=== PATIENT | female | born 1990 | race Caucasian/White ===

== ENCOUNTER 2019-03-19 15:37 | Outpatient (CLI) | payer OTHER ==
[~2019-03-19] VITALS: Ht 167.6 cm; Wt 75.0 kg
[2019-03-19] VITALS (7 sets, daily range): BP systolic 108–130; BP diastolic 57–66; PULSE 80–100; TEMP 98.2
[~2019-03-19 15:37] MED LIST: MOTRIN 600600 MG/TAB PO; PERCOCET 325 MG1 TA2 PO
--- NOTE | 2019-03-19 15:45 | NUR ---
1545-G3L1 35.[address] MONTEIROURES TO LR5 VIA WHEELCHAIR WITH REPORTS OF CONTRACTIONS OFF AND ON SINCE 1145 AND 'BEEN LOSING MUCUS PLUG SINCE THEN.' ASSISTED INTO GOWN AND PLACED ON EFM. VSS. 1555-AMNITEST NEG, SVE 50/-2, BOWI, PALPATED HAND OR FOOT WITH SVE. DR. GUERRERO UPDATED, SEE PHYSICIAN NOTIFICATION. ASSESSMENT COMPLETE. 1618-UP TO BATHROOM, UA SENT TO LAB PER MD ORDERS. 1655-SVE 3-50/-2, UNCHANGED. AWAITING UA RESULTS. 1710-DR. RIVERA UPDATED ON PATIENT, SEE PHYSICIAN NOTIFICATION. ORDERS TO START LR BOLUS AND RECHECK IN ONE HOUR. 1727-SVE -50/-2, PATIENT UNABLE TO SIT STILL BREATHING PURSED LIP THROUGH CONTRACTIONS. 1730-IV TO LEFT HAND. LR BOLUS PER MD ORDERS. 1740-DR. GUERRERO ON UNIT, REVIEWS PLAN OF CARE WITH PATIENT. BEDSIDE SONO, VERTEX CONFIRMED SVE BY MD 3-50/-2. ORDERS TO GIVE TERBUTALINE SQ 0.25MG NOW AND ALLOW PATIENT TO AMBULATE AFTER LR BOLUS FINISHES. 175-SQ TERBUTALINE IN LEFT UPPER ARM. SEE EMAR 180-PATIENT OFF EFM TO AMBULATE. IV TO INT. DR. GUERRERO ON UNIT REVIEWS FHR MONITOR PRIOR TO LEAVING UNIT. 1814-REPORTED OFF TO ELBERT BALL
[2019-03-19] MEDS ORDERED: NATURAL IRON65 MG (16:08)
[2019-03-19] MEDS ORDERED: PRENATAL (16:08)
[2019-03-19] MEDS ORDERED: PROTONIX20 MG (16:09)
[2019-03-19 16:56] LABS: COLLECTION METHOD CLEAN CATCH
[2019-03-19 17:08] LABS: PH 8 (5-8); URINE APPEARANCE Hazy; URINE BACTERIA Many /hpf; URINE BILIRUBIN Negative (NEGATIVE); URINE BLOOD 1+ (NEGATIVE); URINE COLOR Straw; URINE GLUCOSE Negative (NEGATIVE); URINE KETONE Negative (NEGATIVE); URINE LEUKOCYTE ESTERASE Trace (NEGATIVE); URINE NITRATE Negative (NEGATIVE); URINE PROTEIN(semi-quant) Negative (NEGATIVE); URINE RBC 0-2 /hpf; URINE UROBILINOGEN Negative (NEGATIVE); URINE WBC 0-2 /hpf
--- NOTE | 2019-03-19 18:54 | NUR ---
1851- DC ORDERS RECEIVED FROM DR. GUERRERO. 1853- MONITORING DC'D AT THIS TIME. DISCUSSED WITH PT TO RETURN TO UNIT IF YOUR WATER BREAKS OR YOUR CONTRACTIONS BECOME CONSISTENT AGAIN. MAY TAKE TYLENOL AND BENADRYL FOR PAIN AND TO HELP WITH SLEEP PER DR. GUERRERO. QUESTIONS ENCOURAGED AND ANSWERED AND UNDERSTANDING VERBALIZED.
--- NOTE | 2019-03-19 19:20 | NUR ---
DISCHARGE INSTRUCTIONS REVIEWED WITH PT, UNDERSTANDING VERBALIZED. PT WAITING IN LABOR ROOM FOR FAMILY TO ARRIVE.
== END 2019-03-19 19:35 | disposition home or self-care (01) ==
LOC: LDRO 15:37
PROVIDERS: Student in an Organized Health Care Education/Training Program
DX: O62.9 Abnormality of forces of labor, unspecified (principal); Z3A.36 36 weeks gestation of pregnancy
CPT/HCPCS: J3105; J7120

== ENCOUNTER 2019-03-28 09:46 | Outpatient (CLI) | payer OTHER ==
[~2019-03-28] VITALS: Ht 167.6 cm; Wt 74.5 kg
[~2019-03-28 09:46] MED LIST changes: +NATURAL IRON65 MG; +PRENATAL; +PROTONIX20 MG
[2019-03-28 10:07] VITALS: BP 105/63; PULSE 75; TEMP 97.4
[2019-03-28 10:30] VITALS: BP 105/63; PULSE 75; TEMP 97.4
--- NOTE | 2019-03-28 10:32 | NUR ---
PATIENT HERE FOR LABOR CHECK. STATES WENT TO BATHROOM THIS MORNING AND HAD LEAKING. ASSESSMENT COMPLETED. VS WNL. SVE UNCHANGED FROM LAST APPOINTMENT. OCC IRREGULAR CONTRACTIONS.AMNIOTRACE NEGATIVE AND AMNIO SACK FELT WITH SVE. DENIES NEEDS AT THIS TIME,
== END 2019-03-28 10:50 | disposition home or self-care (01) ==
LOC: LDRO 09:46 → LDR 10:15 → LDRO 10:50
DX: Z34.93 Encounter for supervision of normal pregnancy, unspecified, third trimester (principal); Z3A.37 37 weeks gestation of pregnancy
CPT/HCPCS: OP

== ENCOUNTER 2019-04-01 14:20 | Outpatient (CLI) | payer OTHER ==
[~2019-04-01] VITALS: Ht 167.6 cm; Wt 75.0 kg
--- NOTE | 2019-04-01 14:25 | NUR ---
1425- Pt arrives on unit ambulatory, was sent over from the office for labor check. Pt into bathroom, changes into gown and voids. 1429- Pt into bed, EFM and TOCO on and tracing. Pt states she has noticed UCs but they have not been regular enough to time. Assessment complete. SVE 4-5/-2. Pitcher of water given and instructed to PO hydrate. Pt verbalizes understanding. Call light within reach.
[2019-04-01 14:33] VITALS: BP 118/60; PULSE 87; TEMP 98.2
[2019-04-01 17:00] VITALS: BP 111/60; PULSE 84
--- NOTE | 2019-04-01 17:09 | NUR ---
1650 DR MONTEIROURE IN TO SEE PT AND PLAN OF CARE DISCUSSED WITH PT. WILL DISCONNECT FROM MONITOR AND PT WILL AMB IN THE HALLS AND BE RECHECKED IN ABOUT AN HOUR.
--- NOTE | 2019-04-01 18:07 | NUR ---
1745 SVE shows no change and contraction pattern unchanged after up walking for apporximately 20 minutes before returned to bed to visit with friend and text on phone. 1800 Home care instructions reviewed with pt and monitors off and clothes changed. 1805 dismissed amb to self care acc by friend.
== END 2019-04-01 18:05 | disposition home or self-care (01) ==
LOC: LDRO 14:20 → LDR 14:25 → LDRO 18:05
DX: Z34.83 Encounter for supervision of other normal pregnancy, third trimester (principal); Z3A.37 37 weeks gestation of pregnancy
CPT/HCPCS: OP

== ENCOUNTER 2019-04-07 07:59 | Inpatient (IN) | payer OTHER ==
[2019-04-07] VITALS (26 sets, daily range): BP systolic 91–129; BP diastolic 48–71; PULSE 64–93; TEMP 97.9–98.2
[~2019-04-07] VITALS: Ht 167.6 cm; Wt 75.0 kg
[2019-04-07 08:42] LABS: BASO % 0.2 % (0.0-2.0); EOS % 0.4 % (0-4.0); GRAN # 7.4 (1.4-6.5); GRAN % 74.8 % (42.2-75.2); HEMOGLOBIN 10.5 g/dl (12.5-16.0); LYMPH # 1.6 (1.2-3.4); LYMPH % 15.9 % (20.0-51.0); MEAN CELL VOLUME 93 fl (80.0-100.0); MEAN CORPUSCULAR HEMOGLOBIN 29 pg (27.0-31.0); MEAN CORPUSCULAR HGB CONC 32 g/dl (33.0-37.0); MEAN PLATELET VOLUME 10.5 fl (7.4-10.4); MONO # 0.7 (0.1-0.6); MONO % 7.4 % (1.7-9.3); PLATELET COUNT 167 K/mm3 (130-400); RED BLOOD COUNT 3.57 M/mm3 (4.10-5.30); REDCELL DISTRIBUTION WIDTH-CV 14.1 % (11.5-14.5)
[2019-04-07 08:43] LABS: HEMATOCRIT 33.2 % (37.0-47.0)
--- NOTE | 2019-04-07 09:00 | NUR ---
0900- Maria Alejandra.ELBERT Martínez assumes care at this time, Verbal report given.
--- NOTE | 2019-04-07 09:28 | NUR ---
0757- Pt arrives on unit via wheelchair with hospital volunteer, Pt did not check in with admissions. Pt states her water broke at 0640 this morning, clear fluid, denies UCs at this time. Pt into bathroom to change into gown and void. 0800- Pt into bed, EFM and TOCO on and tracing. Amniotrace positive. SVE by this RN /-2, forebag felt with exam. Assessment completed. 0812- Dr Marks on unit, udated on Pt status and exam. desires to perfore SVE. 0817- Pt up to void. 0825- Dr Marks at bedside. Discusses plan of care. SVE perfored by MD, forebag AROM, Moderate amount of clear fluid noted. 0830- INT started.
--- NOTE | 2019-04-07 09:45 | NUR ---
Patient calls out and requests to use bathroom and ambulate around the room. Patient up, voids, underwear and pad on. Ambulating around room.
--- NOTE | 2019-04-07 10:45 | NUR ---
1045: Patient back in room from ambulating in cummins and resting in bed. FHR and contraction monitors placed and tracing. SVE /-2. No cervical change noted from admit. Patient denies feeling pain but feeling occasional cramping in her lower abdomen. Dr. Marks called and report on no cervical change. Order to start pitocin. 1120: Plan of care reviewed with patient and . Pitocin started per protocol.
--- NOTE | 2019-04-07 12:40 | NUR ---
SVE /-2. Patient offered an epidural at this time since ACCOUNTING MANAGER ASSISTANT CONTROLLER will be in OR soon and will not be available until procedure done. Patient refuses epidural at this time and plans to continue breathing through contractions.
--- NOTE | 2019-04-07 13:20 | NUR ---
1320: Patient tearful and breathing heavily through contractions. Patient requesting an epidural. SVE /-2. Dr. Vernon at nurses station and verbal order to give 1 mg Stadol due to Theron Montes De Oca CRNA in OR with patient at this time. 1321: Stadol 1 mg given IV.
--- NOTE | 2019-04-07 13:20 | NUR ---
1320: Pitocin off at this time due to patient waiting for epidural and crying and breathing heavily through contractions.
--- NOTE | 2019-04-07 13:53 | NUR ---
1353: Patient crying and screaming through contractions. SVE 9/100/-1 and patient feeling the urge to push. Dr. Vernon in hospital and called to room for delivery. 1359: Dr. Vernon in room for delivery. SVE /100/+2. Patient begins pushing through contractions. 1402: Spontaneous vaginal delivery of infant head immediately followed by body. Loose nuchal cord reduced after infant head delivered. Baby girl nose and mouth suctioned with bulb syringe by Dr. Vernon and infant to mothers abdomen where attended to by Amanda Mcintyre RN. Umbilical cord clamped and cut by Dr. Vernon. 1408: Spontaneous and intact delivery of placenta. Pitocin restarted at 333ml/hr. Fundus massaged, firm and down 2 from umbilicus. Perineum intact. Ice pack to perineum and patient sitting up holding infant skin to skin. See labor and delivery summary and doctor dictation.
--- NOTE | 2019-04-07 14:30 | NUR ---
Quarter sized clot with small amount of free flow noted with fundal massage. Fundus firm, down 2 from umbilicus.
--- NOTE | 2019-04-07 16:40 | NUR ---
IV to INT. Patient ambulates to bathroom without difficulty. Able to void. Pericare taught and provided. Patient ambulates to room 208, resting in bed, oriented to room and call light. Denies need at this time.
[2019-04-08 02:30] VITALS: BP 100/52; PULSE 60; TEMP 97.4
[2019-04-08 08:30] VITALS: BP 92/56; PULSE 65; TEMP 97.6
[2019-04-08] MEDS ORDERED: IBU800 M1 PO (08:57)
--- NOTE | 2019-04-08 10:22 | NUR ---
Initial visit; Patient resting, Vegetable Preparer left card of congratulations and God's blessings for the of their daughter and information regarding the availability of spiritual care at our hospital.
[2019-04-08 13:00] VITALS: BP 103/49; PULSE 56; TEMP 97.6
--- NOTE | 2019-04-08 16:00 | NUR ---
Discharge instructions given/patient understands and signs papers.
== END 2019-04-08 16:35 | disposition home or self-care (01) | DRG 807 ==
LOC: LDRO 07:59 → LDR 07:59 → LDRO 08:38 → LDR 08:39 → OB 08:39
PROVIDERS: ADMIT Student in an Organized Health Care Education/Training Program
PROC: 10E0XZZ Delivery of Products of Conception, External Approach (ICD-10-PCS; principal; 2019-04-07)
DX: O42.02 Full-term premature rupture of membranes, onset of labor within 24 hours of rupture (principal); Z37.0 Single live birth; Z3A.38 38 weeks gestation of pregnancy; O69.81X0 Labor and delivery complicated by cord around neck, without compression, not applicable or unspecified; J45.909 Unspecified asthma, uncomplicated; O99.52 Diseases of the respiratory system complicating childbirth; O99.02 Anemia complicating childbirth; O99.62 Diseases of the digestive system complicating childbirth; K21.9 Gastro-esophageal reflux disease without esophagitis
CPT/HCPCS: J0595; J2590; J2795; J7120